=== PATIENT | female | born 1950 | race Caucasian/White ===

== ENCOUNTER → 2016-08-29 | Outpatient (CLI) | payer BC ==
[~2016-08-29] MED LIST: CALCTAB5 PO; CHOL100010 PO; MISCCAP80 PO; MULT-884 PO; OMEG12006 PO; VITATAB19 PO
--- NOTE | 2016-08-29 17:14 | MAMMOGRAPHY REPORT ---
BILATERAL DIGITAL SCREENING MAMMOGRAM WITH CAD: 08/29/2016 CLINICAL HISTORY: Routine screening. Patient has no complaints. TECHNIQUE: Current study was also evaluated with a Computer Aided Detection (CAD) system. Bilateral CC and MLO views were obtained. COMPARISON: Comparison is made to exams dated: 07/22/2014 mammogram, 05/07/2013 mammogram, 01/23/2012 mammogram, 03/02/2010 mammogram - [facility], 04/22/2008, and 03/13/2007. BREAST COMPOSITION: The tissue of both breasts is heterogeneously dense, which may obscure small mas ses. FINDINGS: No suspicious masses, calcifications, or areas of architectural distortion are noted in ei ther breast. There has been no significant interval change compared to prior exams. IMPRESSION: ACR BI-RADS CATEGORY 1: NEGATIVE There is no mammographic evidence of malignancy. A 1 year screening mammogram is recommended. The pa tient will receive written notification of the results. Approximately 10% of breast cancers are not detected with mammography. A negative mammographic report should not delay biopsy if a clinically suggestive mass is present. Muna Messer M.D. /:08/29/2016 15:17:48 Antenna Installer: Hillary VICENTER, M, [facility] letter sent: Normal 1/2 BI-RADS Code: ACR BI-RADS Category 1: Negative
== END | disposition home or self-care (01) ==
LOC: C.MAMM 13:42
PROVIDERS: ATTEND Internal Medicine
DX: Z12.31 Encounter for screening mammogram for malignant neoplasm of breast (principal)

== ENCOUNTER → 2017-02-06 | Outpatient (CLI) | payer BC ==
[~2017-02-06] MED LIST changes: +GADAVIST IV PRN
--- NOTE | 2017-02-06 15:53 | DIAGNOSTIC IMAGING REPORT ---
BRAIN COMBO FOR IAC CLINICAL HISTORY: Follow up acoustic neuroma status post gamma knife therapy. COMPARISON STUDY: MRI of the brain February 04, 2015. TECHNIQUE: Utilizing 1.5 Mary magnet and dedicated coil, multiplanar, multi echo imaging of the brain was performed pre and postcontrast administration with thin cut imaging through the internal auditory canals. Injection of 6 cc of Gadavist IV was uneventful. FINDINGS: No areas of restricted diffusion are noted. Ventricular system is normal. Basilar cisterns are patent. There are no extra-axial collections. Flow-voids for the major intracranial vessels are present. The homogeneously enhancing mass centered within the right internal auditory canal has mildly increased in size since MRI of February 04, 2015. This lesion now measures 1.2 x 0.8 x 0.7 cm. It previously measured 1 x 0.6 x 0.5 cm. No additional intracranial masses are present. The left internal auditory canal is normal. No areas of parenchymal signal abnormality are present. Calvarial signal is normal. IMPRESSION: Mild increase in size of the right acoustic neuroma since MRI of February 04, 2015. The lesion measures 1.2 x 0.8 x 0.7 cm (previously 1 x 0.6 x 0.5 cm). Electronically signed by: Gus Blair M.D. 02/06/2017 3:52 PM Dictated Date/Time: 02/06/2017 3:08 PM
== END | disposition home or self-care (01) ==
LOC: C.MRI 13:36
PROVIDERS: ATTEND Specialist
DX: D33.3 Benign neoplasm of cranial nerves (principal)

== ENCOUNTER → 2017-04-23 | Outpatient (CLI) | payer OTHER ==
[~2017-04-23] MED LIST changes: -GADAVIST IV PRN
[2017-04-23 16:11] LABS: BASO % 0.2 %; BASO ABS # 0.03 K/uL (0-0.2); EOS % 0.2 %; EOS ABS # 0.03 K/uL (0-0.5); HEMATOCRIT 37.9 % (37-47); IG# 0.05 K/uL (0.00-0.02); LYMPH % 11.5 %; MEAN CORPUSCULAR HEMOGLOBIN 30.9 pg (25-34); MONO % 6.8 %; MONO ABS # 0.94 K/uL (0.11-0.59); NEUT % 80.9 %; NEUT ABS # 11.24 K/uL (1.4-6.5); PLATELET COUNT 317 K/uL (130-400); RED CELL DISTRIBUTION WIDTH CV 13.8 % (11.5-14.5); RED CELL DISTRIBUTION WIDTH SD 45.4 fL (36.4-46.3); WHITE BLOOD COUNT 13.89 K/uL (4.8-10.8)
[2017-04-23 16:22] LABS: MEAN CORPUSCULAR HGB CONC 34.3 g/dl (32-36)
[2017-04-23 16:33] LABS: BLOOD UREA NITROGEN 7 mg/dl (7-18); CALCIUM 9.3 mg/dl (8.5-10.1); CARBON DIOXIDE 25 mmol/L (21-32); CREATININE 0.68 mg/dl (0.60-1.20); GLUCOSE 107 mg/dl (70-99); SODIUM 128 mmol/L (136-145)
== END | disposition home or self-care (01) ==
LOC: C.LAB 15:50
PROVIDERS: ATTEND Internal Medicine
DX: R10.32 Left lower quadrant pain (principal)

== ENCOUNTER → 2017-04-24 | Outpatient (CLI) | payer OTHER ==
[~2017-04-24] MED LIST changes: +OPTIRAY 320 IV PRN
--- NOTE | 2017-04-24 09:33 | DIAGNOSTIC IMAGING REPORT ---
CT ABD/PELVIS IV AND ORAL CONT CLINICAL HISTORY: LUQ PAIN,SPLEEN CYST COMPARISON STUDY: None. TECHNIQUE: Following the IV administration of 93 mL of Optiray-320, CT scan of the abdomen and pelvis was performed from the lung bases to the proximal femurs. Images are reviewed in the axial, sagittal, and coronal planes. IV contrast was administered without complication. A dose lowering technique was utilized adhering to the principles of ALARA. CT DOSE: 337.74 mGycm FINDINGS: Lower chest: There is mild basilar interstitial thickening. Liver: There are multiple hypodense hepatic lesions, the largest of which measures 14 mm. These are relatively low density and may represent cysts. Gallbladder: Unremarkable. Spleen: Normal in size and attenuation. Pancreas: Unremarkable. Adrenal glands: Unremarkable. Kidneys: There are bilateral subcentimeter renal hypodensities, likely representing cysts. Bowel: There are no transition zones to indicate bowel obstruction. There is sigmoid wall thickening with infiltration of the perisigmoid fat. The findings are consistent with acute diverticulitis. There is a tiny extraluminal gas collection versus visualization of gas within a diverticulum. A tiny contained microperforation, cannot be excluded. The appendix appears normal. Peritoneum: There is no evidence of pelvic ascites Vasculature: There is mild ectasia of the distal thoracic aorta. Adenopathy: None. Pelvic viscera: Uterine fibroids are suspected. There is a probable 8 mm left ovarian dermoid. Skeletal structures: No destructive osseous lesions are seen. IMPRESSION: 1. Acute sigmoid diverticulitis. A tiny contained microperforation cannot be excluded. There is no evidence for a drainable peridiverticular abscess. 2. No evidence of bowel obstruction 3. Probable 8 mm left ovarian dermoid Electronically signed by: Keegan Butcher M.D. 04/24/2017 9:31 AM Dictated Date/Time: 04/24/2017 9:19 AM
== END | disposition home or self-care (01) ==
LOC: C.CTS 04-23 16:09
PROVIDERS: ATTEND Internal Medicine
DX: K59.00 Constipation, unspecified (principal); R10.32 Left lower quadrant pain; R10.814 Left lower quadrant abdominal tenderness; D73.4 Cyst of spleen; K57.32 Diverticulitis of large intestine without perforation or abscess without bleeding

== ENCOUNTER → 2017-11-04 | Outpatient (CLI) | payer OTHER ==
[~2017-11-04] MED LIST changes: -OPTIRAY 320 IV PRN
[2017-11-04 14:02] LABS: BASO % 0.9 %; BASO ABS # 0.05 K/uL (0-0.2); EOS ABS # 0.06 K/uL (0-0.5); HEMATOCRIT 40.7 % (37-47); HEMOGLOBIN 13.3 g/dL (12.0-16.0); IG# 0.01 K/uL (0.00-0.02); LYMPH % 25.6 %; MEAN CELL VOLUME 91.1 fL (80-100); MEAN CORPUSCULAR HEMOGLOBIN 29.8 pg (25-34); MEAN CORPUSCULAR HGB CONC 32.7 g/dl (32-36); MEAN PLATELET VOLUME 9.7 fL (7.4-10.4); MONO % 5.5 %; MONO ABS # 0.32 K/uL (0.11-0.59); NEUT % 66.8 %; NEUT ABS # 3.92 K/uL (1.4-6.5); PLATELET COUNT 331 K/uL (130-400); RED CELL DISTRIBUTION WIDTH SD 46.5 fL (36.4-46.3); WHITE BLOOD COUNT 5.86 K/uL (4.8-10.8)
== END | disposition home or self-care (01) ==
LOC: C.LABBC 11:42
PROVIDERS: ATTEND Family Medicine Adult Medicine
DX: E87.1 Hypo-osmolality and hyponatremia (principal); R29.810 Facial weakness

== ENCOUNTER → 2017-11-07 | Outpatient (CLI) | payer OTHER ==
--- NOTE | 2017-11-07 10:25 | DIAGNOSTIC IMAGING REPORT ---
BILATERAL CAROTID DOPPLER STUDY HISTORY: R29.810 Facial droop [id number] COMPARISON: None. TECHNIQUE: Real-time, grayscale, and color Doppler sonography of the carotid arteries was performed. Imaging reviewed in the transverse and longitudinal planes. All measurements were calculated based on NASCET criteria. FINDINGS: Antegrade flow is seen in the bilateral vertebral arteries. The brachial pressures are hemodynamically similar. The peak systolic velocity within the right ICA is 82 cm/s. The right systolic ratio is 1.4. The peak systolic velocity within the left ICA is 75 cm/s. The left systolic ratio is 1.1. IMPRESSION: No hemodynamically significant stenosis seen within the carotid arteries. Electronically signed by: Luis Grande M.D. 11/07/2017 10:23 AM Dictated Date/Time: 11/07/2017 10:22 AM
== END | disposition home or self-care (01) ==
LOC: C.ULTR 09:38
PROVIDERS: ATTEND Family Medicine Adult Medicine
DX: R29.810 Facial weakness (principal)

== ENCOUNTER 2018-10-17 04:54 | Inpatient (IN) ==
--- NOTE | 2018-09-05 16:01 | PAT Medication Instructions ---
Medication Instructions Date of Service September 05, 2018 Home Medications Calcium 600-D3 Plus 1 tab PO DAILY ascorbic acid (vitamin C) 500 mg PO BID cholecalciferol (vitamin D3) 2,000 unit PO BID [Probiotic] 3,000 mmu cells PO QAM magnesium sulfate 100 mg PO BID [Multivitamin Women 50 Plus] 1 tab PO BID potassium 99 mg PO QAM vitamin B complex 1 tab PO QAM DO NOT take the morning of surgery Calcium 600-D3 Plus 1 tab PO DAILY ascorbic acid (vitamin C) 500 mg PO BID cholecalciferol (vitamin D3) 2,000 unit PO BID [Probiotic] 3,000 mmu cells PO QAM magnesium sulfate 100 mg PO BID [Multivitamin Women 50 Plus] 1 tab PO BID potassium 99 mg PO QAM vitamin B complex 1 tab PO QAM *OK TO TAKE ANY OF THESE THE NIGHT BEFORE SURGERY; OTHERWISE NOTHING TO EAT OR DRINK AFTER MIDNIGHT* Other Notes If you have any questions please call us at [phone] or [phone] or [phone] or [phone]
--- NOTE | 2018-09-08 14:25 | Anesthesiology Consultation ---
Date of Service September 08, 2018 Assessment & Plan (1) Encounter for pre-operative examination: Chart Review Chart Review: Acceptable Risk for Surgery and Patient seen in Pre Admission Testing Teaching & Discussion Instructed NPO after midnight before surgery, except medications with 15 cc of water. Medication instructions provided according to the PAT guidelines. History Surgery Operation Date: 10/17/18 12:30 Proposed Procedures p Right Anterior Total Hip Replacement - Jayce Lorenz DO Height/Weight Height: 5 ft 6 in Weight: 61 kg Allergies Allergy/AdvReac Type Severity Reaction Status Date / Time Sulfa (Sulfonamide Allergy Intermediate RASH Verified 09/02/18 12:26 Antibiotics) Medications Home Medications Medication Instructions Recorded Confirmed Last Taken Ca-D3-mag en-bszn-ufj-janiya-bor 1 tab PO DAILY 09/02/18 09/02/18 Unknown [Calcium 600-D3 Plus] ascorbic acid (vitamin C) [Vitamin 500 mg PO BID 09/02/18 09/02/18 Unknown C] cholecalciferol (vitamin D3) 2,000 unit PO BID 09/02/18 09/02/18 Unknown [Vitamin D3] lactobacillus combination no.4 3,000 mmu cells PO QAM 09/02/18 09/02/18 Unknown [Probiotic] magnesium sulfate 100 mg PO BID 09/02/18 09/02/18 Unknown ggxloscl-yrg-ftga-FA-lutein 1 tab PO BID 09/02/18 09/02/18 Unknown [Multivitamin Women 50 Plus] potassium 99 mg PO QAM 09/02/18 09/02/18 Unknown vitamin B complex 1 tab PO QAM 09/02/18 09/02/18 Unknown Past Medical History Medical History Acoustic neuroma HAS R SIDED HEARING DEFECIT - HAD GAMMA RAY THERAPY History of diverticulitis Osteoarthritis Osteoporosis Stutter Exercise / Class Metabolic Activity III < 4 Walking/Shop/Light housework (Very limited by hip pain currently, has noticed some deconditioning in the past year or so, +SOB with stairs, denies CP.) Past Family History Family History Other Coronary heart disease Hypertension Kidney disease Past Surgical History Surgical History Hx of colonoscopy with polypectomy Past Anesthesia History No Hx of Anesthesia Complications and No Family Hx of Anesthesia Complications GA NAIVE History of PONV No Hx of PONV (some mild nausea) and No Hx of Motion Sickness (but has dizziness from acoustic neuroma) Social History Smoking Status: Never smoker Do You Dip or Chew Tobacco: No Hx Alcohol Use: Yes Alcohol type: beer and wine alcohol intake frequency: a few times a week Hx Substance Use: No Review of Systems Pt denies any recent chest pain, shortness of breath, palpitations, cough, fever or URI. +mild cold last month, resolved. +occ palpitations Physical Exam Vital Signs BP: 129/76 P: 64bpm SPO2: 98% RA T: 98.7 F R: 16 ENMT Mouth: + dental restorations (few crowns); no chipped teeth and no loose teeth Thyromental Distance: < 3.5 Finger Breadths (1.5) Mallampati Class: III Neck + shortened thyromental distance; neck extension not limited Respiratory normal respiratory effort Auscultation: lungs clear to auscultation bilaterally Cardiovascular Rate/Rhythm: regular rate and regular rhythm Heart Sounds: no murmur Vessels: no carotid bruit Extremities: no edema Testing Laboratory Results 09/08/18 14:55 09/08/18 14:55 PT 10.3 Seconds (9.0-12.0) 09/08/18 14:55 INR 1.0 (0.9-1.1) 09/08/18 14:55 APTT 25.4 Seconds (21.0-31.0) 09/08/18 14:55 Blood Type B Positive 09/08/18 14:55 Antibody Screen NEGATIVE 09/08/18 14:55 Electrocardiogram Date: 12/02/17 Findings: + NSR @ (61 with sinus arrhythmia) Chest X-Ray Date: 09/08/18 Findings: + NAD
[2018-09-08 15:35] LABS: Basophils # (auto) 0.04 K/uL (0-0.2); Basophils % (auto) 0.7 %; Eosinophils # (auto) 0.08 K/uL (0-0.5); Eosinophils % (auto) 1.3 %; Hematocrit (blood only) 36.9 % (37-47); Hemoglobin 12.6 g/dL (12.0-16.0); Immature Granulocytes # (auto) 0.01 K/uL (0.00-0.02); Immature Granulocytes % (auto) 0.2 %; Lymphocytes # (auto) 1.51 K/uL (1.2-3.4); Lymphocytes % (auto) 24.6 %; Mean Corpuscular Hgb Conc 34.1 g/dL (32-36); Mean Corpuscular Volume 88.9 fL (80-100); Mean Platelet Volume 9.2 fL (7.4-10.4); Monocytes # (auto) 0.46 K/uL (0.11-0.59); Monocytes % (auto) 7.5 %; Neutrophils # (auto) 4.04 K/uL (1.4-6.5); Neutrophils % (auto) 65.7 %; Platelet Count 311 K/uL (130-400); RDW Standard Deviation 45.9 fL (36.4-46.3); Red Blood Count 4.15 M/uL (4.2-5.4); White Blood Count 6.14 K/uL (4.8-10.8)
--- NOTE | 2018-09-08 15:47 | XRay Report ---
XR chest Pre-admission PA/Lat CLINICAL HISTORY: Preoperative evaluation. COMPARISON STUDY: Chest radiograph February 20, 2011. FINDINGS: Lung volumes are normal. There is no pneumothorax or pleural effusion. There is no consolid ation or evidence for pulmonary edema. Cardiac size is normal. Mediastinal contours are normal. IMPRESSION: No acute cardiopulmonary findings. Electronically signed by: Gus Blair M.D. 09/08/2018 3:46 PM
[2018-09-08 15:52] LABS: BUN Creatinine Ratio 23.8 (10-20); Calcium 9.8 mg/dl (8.5-10.1); Creatinine Clr Calc Pharmacy 87.2 ml/min; Est GFR (African American) 109.6; Est GFR (Non-African American) 94.6; Potassium 4.6 mmol/L (3.5-5.1)
[2018-09-08 15:56] LABS: Partial Thromboplastin Ratio 0.9; Partial Thromboplastin Time 25.4 Seconds (21.0-31.0); Prothrombin Time 10.3 Seconds (9.0-12.0)
--- NOTE | 2018-10-14 07:26 | History & Physical Report ---
Date of Service October 14, 2018 Assessment & Plan (1) Osteoarthritis of right hip: We will proceed with a right anterior total hip arthroplasty. Postoperatively she will be started on aspirin for DVT prophylaxis. She will be kept overnight in the hospital for postoperative medical management. She plans to use energy physical therapy upon discharge. Present on Admission?: Yes History of Present Illness Chief Complaint: Primary osteoarthritis of the right hip Primary Care Provider: Wilton Bradshaw MD Staci is a pleasant 68-year-old female who is been dealing with chronic increasing right hip and groin pain. X-rays and clinical examination were diagnostic for primary osteoarthritis of the right hip. After failing conservative treatment, she has elected proceed with a right anterior total hip arthroplasty. Allergies Allergy/AdvReac Type Severity Reaction Status Date / Time Sulfa (Sulfonamide Allergy Intermediate RASH Verified 09/02/18 12:26 Antibiotics) Home Medications Home Medications Medication Instructions Recorded Confirmed Type Ca-D3-mag hs-elpv-rzp-janiya-bor 1 tab PO DAILY 09/02/18 09/02/18 History [Calcium 600-D3 Plus] ascorbic acid (vitamin C) [Vitamin 500 mg PO BID 09/02/18 09/02/18 History C] cholecalciferol (vitamin D3) 2,000 unit PO BID 09/02/18 09/02/18 History [Vitamin D3] lactobacillus combination no.4 3,000 mmu cells PO QAM 09/02/18 09/02/18 History [Probiotic] magnesium sulfate 100 mg PO BID 09/02/18 09/02/18 History wtwlgdjy-ldc-njdm-FA-lutein 1 tab PO BID 09/02/18 09/02/18 History [Multivitamin Women 50 Plus] potassium 99 mg PO QAM 09/02/18 09/02/18 History vitamin B complex 1 tab PO QAM 09/02/18 09/02/18 History Past Med/Surg History Medical History Acoustic neuroma HAS R SIDED HEARING DEFECIT - HAD GAMMA RAY THERAPY History of diverticulitis Osteoarthritis Osteoporosis Stutter Surgical History Hx of colonoscopy with polypectomy Family History Other Coronary heart disease Hypertension Kidney disease Social History (Reviewed 09/10/18 @ 16:26 by Aquilino Santana Preferred Language: [place] Communication Ability: Effective Beliefs That Will Affect Care: None Current Living Situation: Spouse Feels Safe at Home: Yes Smoking Status: Never smoker Second Hand Exposure: No Hx Alcohol Use: Yes Alcohol type: beer and wine Hx Substance Use: No Review of Systems All systems reviewed & are unremarkable except as noted in HPI & below Physical Exam Constitutional: WD/WN, vitals as above Eyes: PERRL, conjunctivae normal, anicteric sclerae ENMT: external ear and nose normal, oropharynx normal Neck: trachea midline, no thyromegaly Respiratory: normal respiratory effort Cardiovascular: RRR, no murmur, no edema Gastrointestinal (Abdomen): normal bowel sounds, soft, nontender, no hepatosplenomegaly Musculoskeletal: Physical examination of the right hip reveals decreased range of motion with flexion, internal and external rotation. There is significant groin pain with forced internal rotation of the hip his leg lengths are essentially equal. Psychiatric: A+Ox3, euthymic affect Results & Data Diagnostic Findings Radiographs of the right hip and pelvis demonstrate advanced osteoarthritis with joint space narrowing osteophyte formation and mxje-ff-akzl articulation.
[2018-10-17] MEDS ORDERED: LR 500ML BOLUS, THEN 15ML/HR IV SCH (06:00)
[2018-10-17] MEDS ORDERED: TRANEXAMIC ACID 1,000 MG **IV Pre-op IV SCH (06:00)
[2018-10-17] MEDS ORDERED: ROPIVACAINE 0.5% HCL/PF 150 MG, BUPIVACAINE 0.5% MPF 30 ML, EPINEPHrine 30MG/30ML (OR U... INSTIL SCH (06:00)
[2018-10-17] MEDS ORDERED: LR 60ML/HR IV SCH (06:00)
[2018-10-17] MEDS ORDERED: GABAPENTIN 300 MG CAP PO SCH (06:00)
[2018-10-17] MEDS ORDERED: ACETAMINOPHEN 500 MG TAB PO SCH (06:00)
[2018-10-17] MEDS ORDERED: CEFAZOLIN 1000MG 1,000 MG/7.5 ML SYR IV SCH (06:00)
[2018-10-17] MEDS ORDERED: FAMOTIDINE 20 MG TAB PO SCH (06:00)
[2018-10-17] MEDS ORDERED: BUPIVACAINE 0.5 % 5 MG/1 ML PF 10ML VIAL ONE (06:24)
[2018-10-17] MEDS ORDERED: ePHEDrine sulfate 50 MG/ML AMP IV PRN (06:34)
[2018-10-17] MEDS ORDERED: ATROPINE SULFATE 0.1 MG/ML 10ML SYR IV PRN (06:34)
[2018-10-17] MEDS ORDERED: ONDANSETRON INJ 2 MG/ML 2 ML VIAL IV PRN ×2 (06:34→10:22)
[2018-10-17] MEDS ORDERED: fentaNYL citrate 100 MCG/2 ML VIAL IV PRN (06:34)
[2018-10-17] MEDS ORDERED: ORTHO JOINT ANESTHETIC ONE (06:36)
[2018-10-17] MEDS ORDERED: MIDAZOLAM HCL 1 MG/ML 2ML VIAL ONE ×2 (06:41→07:02)
[2018-10-17] MEDS ORDERED: fentaNYL citrate 100 MCG/2 ML VIAL ONE (06:42)
[2018-10-17] MEDS ORDERED: PROPOFOL IV EMULSION 10 MG/ML 20 ML VIAL IV ONE ×2 (06:44→08:15)
[2018-10-17] MEDS ORDERED: LIDOCAINE HCL 2% 2 ML VIAL/AMP(20MG/ML) INFIL ONE (06:44)
--- NOTE | 2018-10-17 06:55 | History & Physical Bridge Note ---
Date of Service October 17, 2018 History & Physical Bridge Note I have examined the patient, reviewed the History & Physical and in the interval since the performance of the History & Physical I have noted the following changes of clinical significance: no changes noted
[2018-10-17] MEDS ORDERED: ONDANSETRON INJ 2 MG/ML 2 ML VIAL ONE (07:21)
[2018-10-17] MEDS ORDERED: PHENYLEPHRINE 100MCG/ML 5ML SYR ONE (08:12)
--- NOTE | 2018-10-17 08:34 | Operative Report ---
Post Operative Report Pre & Post Diagnosis Operation Date: 10/17/18 07:00 Pre-Op Diagnosis: Right Hip Advanced Osteoarthritis Post-Op Diagnosis: Right Hip Advanced Osteoarthritis Procedure Operation Date: 10/17/18 07:00 Actual Procedures p Right Anterior Total Hip Arthroplasty--Uncemented(Right) - Jayce Lorenz DO Surgeon Jayce Lorenz DO Freight Car Loader Jayce Viveros PAC Estimated Blood Loss 200 Findings Consistent with Post-Op Diagnosis Specimens Right femoral head Complications none Disposition Disposition: Recovery Room Indications Female who presented my office with complaints of chronic increasing right hip and groin pain. X-rays and clinical examination were diagnostic for primary osteoarthritis of the right hip. After failing conservative treatment, she elected to proceed with a right anterior total hip arthroplasty. Description of Procedure Implants used Biomet Taperloc total hip arthroplasty system with a size 12 standard offset Taperloc stem, a 54 mm G7 cup with a 25mm screw, an E1 polyethylene liner, a 40 mm ceramic head with a 0 neck. Patient arrived at the hospital for the above procedure. They were seen in the preoperative holding area and the operative extremity was identified and signed. They were given a spinal anesthetic. They were given a preoperative antibiotic and TXA. They were taken back To the operating room and laid on the table in the supine position. The leg was brought out through a Puristst leg positioner. The hip was then prepped and draped in sterile fashion. A timeout was done and the patient in upper extremities properly identified. An anterior approach was used. Dissection was taken down through the fascia and the tensor muscle belly was retracted laterally and the rectus was retracted medially. The circumflex vessels were identified and ligated. The capsule was then incised and tagged for later repair. The femoral neck was then cut and the femoral head was removed. The acetabulum was exposed. Time was spent doing a complete circumferential labral release. Sequential reaming of the acetabulum up to a size 53 reamer was done. Final reamings were done under fluoroscopy to ensure appropriate version. A Biomet 54 mm G7 cup was then impacted into place. A single 25 mm screw was placed. The E1 polyethylene liner was then snapped into place. Surrounding soft tissues were then injected with 100 cc of an orthopedic pain control cocktail. The proximal femur was then exposed. Sequential broaching up to a size 12 broach was done. Off that broach a size 40 head with a 0 neck was trialed. The hip was reduced and fluoroscopic images showed anatomic alignment of the implants in acceptable length. The broach was removed. The final size 12 standard offset Taperloc stem was then impacted into place. A ceramic 40 mm head with a 0 neck was then impacted into place in the hip was reduced. Final fluoroscopic images showed anatomic reduction of the hip. The capsule was then closed with #1 Vicryl suture. A dilute betadyne lavage was then done for 3 minutes. The joint was then irrigated with normal saline solution. The fascia was closed with #1 PDS suture. Skin was closed with 2-0 Vicryl, pinky, and a Kayce VAC dressing. The patient was then transferred to a hospital bed and taken to the post anesthesia care unit in stable condition. They tolerated the procedure well. I attest to the content of the Intraoperative Record and any orders documented therein. Any exceptions are noted below.
--- NOTE | 2018-10-17 08:52 | Fluoroscopy Report ---
FL hip RT 1V CLINICAL HISTORY: RIGHT ANTERIOR SAVANNA COMPARISON STUDY: 05/27/2015 FLUOROSCOPY TIME: 22 seconds. NUMBER OF FLUOROSCOPIC IMAGES: 2 FINDINGS: 2 intraoperative fluoroscopic spot images reveal 80 ( /20.)!. IMPRESSION: Intraoperative fluoroscopic spot images demonstrating a total right hip arthroplasty. No dislocation. Electronically signed by: Keegan Butcher M.D. 10/17/2018 8:51 AM
--- NOTE | 2018-10-17 09:14 | Anesthesiology Progress Note ---
Date of Service October 17, 2018 Anesthesia Post Procedure Vital Signs Vital Signs: Temp Pulse Resp BP Pulse Ox 10/17/18 09:10 73 21 119/69 100 10/17/18 09:00 73 20 116/64 100 10/17/18 08:50 97.3 F L 75 16 103/65 100 10/17/18 05:42 97.9 F 69 16 153/73 H 98 Transfer of Care Handoff Completed per policy Notes Mental Status: alert / awake / arousable and participated in evaluation Patient Amnestic to Procedure: Yes Nausea / Vomiting: adequately controlled Pain: adequately controlled Airway Patency, RR, SpO2: stable & adequate BP & HR: stable & adequate Hydration State: stable & adequate Neuraxial Anesthesia: was administered and sensory block is resolving Anesthetic Complications: no major complications apparent and Pt Satisfied with anesthetic care
[2018-10-17] MEDS: TRANEXAMIC ACID 1,000 MG **IV Intra-op IV SCH ×2 (09:21→10:27)
--- NOTE | 2018-10-17 09:22 | XRay Report ---
AP PELVIS, CROSSTABLE LATERAL RIGHT HIP History: Right total hip arthroplasty. Degenerative arthritis. Postop. FINDINGS: The patient is status post a right total hip arthroplasty. The hardware is intact. No fract ure or dislocation. Skin pinky and surgical drains are in place. IMPRESSION: Right total hip arthroplasty. No evidence for hardware complication Electronically signed by: Luis Grande M.D. 10/17/2018 9:20 AM
[2018-10-17] MEDS ORDERED: OXYCODONE HCL IR 5 MG TAB (IMMEDIATE RELEASE) PO PRN (10:22)
[2018-10-17] MEDS ORDERED: MULTIVITAMIN TAB PO SCH (10:22)
[2018-10-17] MEDS ORDERED: METOCLOPRAMIDE HCL INJ 5 MG/ML 2 ML VIAL IV PRN (10:22)
[2018-10-17] MEDS ORDERED: HYDROmorphone INJ 0.5 MG/0.5 ML SYR IV PRN (10:22)
[2018-10-17] MEDS ORDERED: BISACODYL 10 MG SUPP PR PRN (10:22)
[2018-10-17] MEDS ORDERED: MAGNESIUM HYDROXIDE SUSP 30 ML UDC PO PRN (10:22)
[2018-10-17] MEDS ORDERED: NALOXONE HCL 0.4 MG/1 ML VIAL/CARP IV PRN (10:22)
[2018-10-17] MEDS ORDERED: MAGNESIUM SULFATE 100 MG PO SCH (10:22)
[2018-10-17] MEDS: SODIUM CHLORIDE 0.9% 1000ML 1,000 ML IV SCH ×2 (11:12→21:22)
[2018-10-17] MEDS: DOCUSATE SODIUM 100 MG CAP PO SCH ×2 (12:39→21:24)
[2018-10-17] MEDS: CHOLECALCIFEROL 1,000 UNITS TAB PO SCH ×2 (12:40→21:24)
[2018-10-17] MEDS: KETOROLAC TROMETHAMINE 15 MG/ML VIAL IV SCH ×3 (12:40→22:21)
[2018-10-17] MEDS: CEROVITE ADV FORMULA TAB PO SCH (12:40)
[2018-10-17] MEDS: POTASSIUM CHLORIDE 10 MEQ TABCR PO SCH (12:40)
[2018-10-17] MEDS: ASPIRIN 81 MG ECTAB PO SCH ×2 (12:40→21:24)
[2018-10-17] MEDS: LACTOBACILLUS ACIDOPHILUS (FLORANEX) TAB PO SCH (12:40)
[2018-10-17] MEDS: CALCIUM 600MG + VIT D 400 IU TAB PO SCH (12:40)
[2018-10-17] MEDS: ACETAMINOPHEN 500 MG TAB PO SCH ×2 (14:10→22:21)
[2018-10-17] MEDS: CEFAZOLIN 2000MG 2,000 MG/15 ML SYR IV SCH ×2 (14:11→22:21)
[2018-10-17] MEDS ORDERED: SENNA 8.6 MG TAB PO SCH (21:00)
[2018-10-18] MEDS: ACETAMINOPHEN 500 MG TAB PO SCH ×2 (04:59→13:21)
[2018-10-18] MEDS: KETOROLAC TROMETHAMINE 15 MG/ML VIAL IV SCH ×3 (04:59→16:12)
[2018-10-18 06:07] LABS: Basophils # (auto) 0.02 K/uL (0-0.2); Basophils % (auto) 0.2 %; Eosinophils # (auto) 0.02 K/uL (0-0.5); Eosinophils % (auto) 0.2 %; Hematocrit (blood only) 32.8 % (37-47); Hemoglobin 10.9 g/dL (12.0-16.0); Immature Granulocytes # (auto) 0.03 K/uL (0.00-0.02); Immature Granulocytes % (auto) 0.3 %; Lymphocytes # (auto) 1.15 K/uL (1.2-3.4); Lymphocytes % (auto) 11.2 %; Mean Corpuscular Hgb Conc 33.2 g/dL (32-36); Mean Corpuscular Volume 89.9 fL (80-100); Mean Platelet Volume 9.4 fL (7.4-10.4); Monocytes # (auto) 1.02 K/uL (0.11-0.59); Neutrophils # (auto) 8.01 K/uL (1.4-6.5); Neutrophils % (auto) 78.1 %; Platelet Count 243 K/uL (130-400); RDW Coefficient of Variation 14.4 % (11.5-14.5); RDW Standard Deviation 47.5 fL (36.4-46.3); Red Blood Count 3.65 M/uL (4.2-5.4); White Blood Count 10.25 K/uL (4.8-10.8)
[2018-10-18 06:38] LABS: BUN Creatinine Ratio 15.4 (10-20); Creatinine Clr Calc Pharmacy 84.2 ml/min; Est GFR (African American) 108.4; Est GFR (Non-African American) 93.5; Potassium 4.6 mmol/L (3.5-5.1)
[2018-10-18] MEDS: ASPIRIN 81 MG ECTAB PO SCH (08:50)
[2018-10-18] MEDS: DOCUSATE SODIUM 100 MG CAP PO SCH (08:50)
[2018-10-18] MEDS: CALCIUM 600MG + VIT D 400 IU TAB PO SCH (08:50)
[2018-10-18] MEDS: POTASSIUM CHLORIDE 10 MEQ TABCR PO SCH (08:51)
[2018-10-18] MEDS: LACTOBACILLUS ACIDOPHILUS (FLORANEX) TAB PO SCH (08:51)
[2018-10-18] MEDS: CHOLECALCIFEROL 1,000 UNITS TAB PO SCH (08:52)
--- NOTE | 2018-10-18 09:00 | Orthopedic Progress Note ---
Date of Service October 18, 2018 Assessment & Plan (1) Osteoarthritis of right hip: Overall she is doing fairly well. She is not having too much pain in the hip. She will be seen by physical therapy this morning for ambulation and range of motion exercises. She is on aspirin for DVT prophylaxis and oxycodone for pain control. She can be discharged home later this afternoon if she is feeling okay. If she still having some soreness or difficulty ambulating, she can stay until tomorrow. Present on Admission?: Yes Subjective Staci was seen and examined at bedside this morning. Overall she is doing fairly well. She is not having too much pain in her hip. She is been up and ambulating. She has no complaints. Physical Exam Musculoskeletal: On physical examination of the right hip, the Kayce VAC dressing is to suction. Her leg lengths are equal. She has active range of motion of her right ankle. Sensations intact throughout. Results & Data Vital Signs (Past 12 Hours) Vital Signs Temp Pulse Resp BP BP Pulse Ox 10/18/18 07:03 36.8 C 72 18 121/80 98 10/18/18 03:42 36.6 C 78 16 135/73 98 10/17/18 23:10 36.6 C 72 16 111/74 95 10/17/18 22:32 36.9 C 67 18 105/68 96 Laboratory Results H & H 09/08/18 10/18/18 Range/Units 14:55 05:44 Hgb 12.6 10.9 L (12.0-16.0) g/dL Hct 36.9 L 32.8 L (37-47) % Coagulation 09/08/18 Range/Units 14:55 INR 1.0 (0.9-1.1) Diagnostic Findings Postoperative x-rays of the right hip show the prosthesis to be in anatomic alignment without any evidence of fracture, dislocation, or loosening.
[2018-10-18] MEDS: CEROVITE ADV FORMULA TAB PO SCH (10:03)
--- NOTE | 2018-10-19 07:32 | Discharge Summary ---
Date of Service October 19, 2018 Admission HPI Per Admitting Provider Staci is a pleasant 68-year-old female who is been dealing with chronic increasing right hip and groin pain. X-rays and clinical examination were diagnostic for primary osteoarthritis of the right hip. After failing con servative treatment, she has elected proceed with a right anterior total hip arthroplasty. Specialty Data Orthopedic H & H 09/08/18 10/18/18 Range/Units 14:55 05:44 Hgb 12.6 10.9 L (12.0-16.0) g/dL Hct 36.9 L 32.8 L (37-47) % Coagulation 09/08/18 Range/Units 14:55 INR 1.0 (0.9-1.1) Discharge Data Consultations 10/18/18 08:00 Consult Case Management - Discharge Planning Routine Procedures Performed Operation Date: 10/17/18 07:00 Actual Procedures p Right Anterior Total Hip Arthroplasty--Uncemented(Right) - Jayce Lorenz DO Hospital Course (1) Osteoarthritis of right hip: On October 17, 2018 Staci arrived at [facility] and underwent a right anterior total hip arthroplasty without complication. She had a spinal anesthetic. Postoperatively she was started on aspirin for DVT prophylaxis and discharged to general orthopedic floors. Her hospital course is uneventful. On postop day #1 her H&H was stable and her pain was well controlled. She was able to ambulate well with physical therapy. She was then discharged home with energy physical therapy. She will follow-up with orthopedics in 2 weeks. Discharge Instructions Home Medications Medication Instructions Recorded Confirmed Ca-D3-mag lh-utsi-ocu-janiya-bor 1 tab PO DAILY 09/02/18 09/02/18 [Calcium 600-D3 Plus] Multivitamin Women 50 Plus 1 tab PO BID 09/02/18 09/02/18 Probiotic 3,000 mmu cells PO QAM 09/02/18 09/02/18 ascorbic acid (vitamin C) [Vitamin 500 mg PO BID 09/02/18 09/02/18 C] cholecalciferol (vitamin D3) 2,000 unit PO BID 09/02/18 09/02/18 [Vitamin D3] magnesium sulfate 100 mg PO BID 09/02/18 09/02/18 potassium 99 mg PO QAM 09/02/18 09/02/18 vitamin B complex 1 tab PO QAM 09/02/18 09/02/18 Saccharomyces boulardii 250 mg PO .TAKE 1 CAPSULE Daily cap 10/16/18 10/16/18 capsule multivitamin PO 10/16/18 10/16/18 omega 5-jbm-knn-fish oil 900 cap PO cap 10/16/18 10/16/18 mg-1,400 mg capsule,delayed release turmeric root extract 500 mg 500 mg PO DAILY 10/16/18 10/16/18 capsule Previous Rx's Medication Instructions Recorded aspirin [Ecotrin Low Strength] 81 mg PO BID #84 tab 10/18/18 oxycodone 5 mg PO Q4H PRN #40 tab 10/18/18
== END 2018-10-18 17:22 | disposition home or self-care (01) | DRG 470 ==
LOC: ASU 04:54 → 3E 08:51

== ENCOUNTER 2019-03-20 04:50 | Inpatient (IN) ==
--- NOTE | 2019-02-24 14:56 | PAT Medication Instructions ---
Medication Instructions Date of Service February 24, 2019 Home Medications Ca-D3-mag cm-jrnm-cha-janiya-bor [Calcium 600-D3 Plus (mag-zinc)] 1 tab PO DAILY Multivitamin Women 50 Plus 1 tab PO BID Probiotic 3,000 mmu cells PO QAM ascorbic acid (vitamin C) [Vitamin C] 500 mg PO BID cholecalciferol (vitamin D3) [Vitamin D3] 2,000 unit PO BID magnesium sulfate 100 mg PO BID potassium 99 mg PO QAM vitamin B complex 1 tab PO QAM Saccharomyces boulardii 250 mg capsule 250 mg PO QAM omega 9-lca-exi-fish oil 900 mg-1,400 mg capsule,delayed release 1 cap PO QAM turmeric root extract 500 mg capsule 500 mg PO DAILY alendronate [Fosamax] 70 mg PO WK amoxicillin 2,000 mg PO UD PRN Continue as directed alendronate [Fosamax] 70 mg PO WK amoxicillin 2,000 mg PO UD PRN (prior to dental procedures) STOP taking 2 weeks before surgery (or as soon as possible if surgery is within 2 weeks) omega 8-ash-zay-fish oil 900 mg-1,400 mg capsule,delayed release 1 cap PO QAM turmeric root extract 500 mg capsule 500 mg PO DAILY DO NOT take the morning of surgery Ca-D3-mag jy-vdzo-bdz-janiya-bor [Calcium 600-D3 Plus (mag-zinc)] 1 tab PO DAILY Multivitamin Women 50 Plus 1 tab PO BID Probiotic 3,000 mmu cells PO QAM ascorbic acid (vitamin C) [Vitamin C] 500 mg PO BID cholecalciferol (vitamin D3) [Vitamin D3] 2,000 unit PO BID magnesium sulfate 100 mg PO BID potassium 99 mg PO QAM vitamin B complex 1 tab PO QAM Saccharomyces boulardii 250 mg capsule 250 mg PO QAM Other Notes If you have any questions please call us at [phone] or [phone] or [phone] or [phone]
--- NOTE | 2019-02-25 10:32 | Anesthesiology Consultation ---
Date of Service February 25, 2019 Assessment & Plan (1) Encounter for pre-operative examination: - Patient goes by "Staci Cotton" Chart Review Chart Review: Acceptable Risk for Surgery and Patient seen in Pre Admission Testing Teaching & Discussion Pre-Anesthesia Teaching/Discussion Notes: Instructed NPO after midnight before surgery,except medications with 15 cc of water. Medication instructions provided according to the PAT guidelines. History Surgery Operation Date: 03/20/19 08:30 Proposed Procedures p Left Anterior Total Hip Arthroplasty - Jayce Lorenz DO Height/Weight Height: 5 ft 6 in Weight: 61.3 kg Allergies Allergy/AdvReac Type Severity Reaction Status Date / Time Sulfa (Sulfonamide Allergy Intermediate RASH Verified 02/25/19 09:39 Antibiotics) Bactrim TABS Allergy Uncoded 02/25/19 09:39 Medications Home Medications Medication Instructions Recorded Confirmed Last Taken Ca-D3-mag vz-scxx-xom-janiya-bor 1 tab PO DAILY 09/02/18 02/17/19 10/10/18 08:00 [Calcium 600-D3 Plus (mag-zinc)] Multivitamin Women 50 Plus 1 tab PO BID 09/02/18 02/17/19 10/10/18 08:00 Probiotic 3,000 mmu cells PO QAM 09/02/18 02/17/19 10/10/18 08:00 ascorbic acid (vitamin C) [Vitamin 500 mg PO BID 09/02/18 02/17/19 10/10/18 08:00 C] cholecalciferol (vitamin D3) 2,000 unit PO BID 09/02/18 02/17/19 10/10/18 08:00 [Vitamin D3] magnesium sulfate 100 mg PO BID 09/02/18 02/17/19 10/10/18 08:00 potassium 99 mg PO QAM 09/02/18 02/17/19 10/10/18 08:00 vitamin B complex 1 tab PO QAM 09/02/18 02/17/19 10/10/18 08:00 Saccharomyces boulardii 250 mg 250 mg PO QAM cap 10/16/18 02/17/19 10/10/18 08:00 capsule omega 4-qek-mnn-fish oil 900 1 cap PO QAM cap 10/16/18 02/17/19 10/10/18 08:00 mg-1,400 mg capsule,delayed release turmeric root extract 500 mg 500 mg PO DAILY 10/16/18 02/17/19 10/10/18 08:00 capsule alendronate [Fosamax] 70 mg PO WK 02/17/19 02/17/19 Unknown Past Medical History Medical History (Updated 02/25/19 @ 15:30 by Bethany Cardoso) 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) History of diverticulitis Hyponatremia chronic with baseline in low 130's per chart review dating back to at least 03/2017 Osteoarthritis Osteoporosis Stutter Exercise / Class Metabolic Activity II 4-5 Yardwork/Stairs/Walk up hill (one flight of stairs (no chest pain/no sob)) Past Family History Family History Grandfather Stomach cancer Other Coronary heart disease Hypertension Kidney disease Past Surgical History Surgical History History of right hip replacement Right anterior SAVANNA: 10/17/18 : SAB x 1 at L3-L4 at [facility] History of wisdom tooth extraction Hx of colonoscopy with polypectomy Past Anesthesia History No Hx of Anesthesia Complications and No Family Hx of Anesthesia Complications History of PONV No Hx of PONV and Hx of Motion Sickness (+ occasional related to acoustic neuroma) Social History Smoking Status: Never smoker Do You Dip or Chew Tobacco: No Hx Alcohol Use: Yes Alcohol type: beer and wine alcohol intake frequency: a few times a week Hx Substance Use: No substance use type: does not use Review of Systems Patient denies chest pain, shortness of breath, dyspnea on exertion, cough, wheezing, palpitations. Physical Exam Vital Signs VITALS BP 134/82 P 68 TEMP 97.9 SP02 97%RA RESP 16 PHYSICAL Full neck and c-spine range of motion. Full TMJ range of motion. TMD 2 finger breaths Mallampati Score 2 Dentition: intact, several caps "all over" Lungs: clear throughout to auscultation Cardiac: regular rate and rhythm, no murmurs noted Spine: normal Carotid arteries: negative bruit Extremities: no edema Testing Laboratory Results 02/25/19 10:57 02/25/19 10:57 PT 10.2 Seconds (9.0-12.0) 02/25/19 10:57 INR 1.0 (0.9-1.1) 02/25/19 10:57 APTT 25.3 Seconds (21.0-31.0) 02/25/19 10:57 Blood Type B Positive 02/25/19 10:57 Antibody Screen NEGATIVE 02/25/19 10:57 *chronic hyponatremia with baseline in low 130's per chart review dating back to at least 03/2017* Electrocardiogram Date: 02/25/19 Findings: + NSR @ (71) Chest X-Ray Date: 09/08/18 Findings: + NAD
[2019-02-25 13:15] LABS: Basophils # (auto) 0.03 K/uL (0-0.2); Basophils % (auto) 0.6 %; Eosinophils # (auto) 0.06 K/uL (0-0.5); Eosinophils % (auto) 1.1 %; Hemoglobin 13.6 g/dL (12.0-16.0); Immature Granulocytes # (auto) 0.02 K/uL (0.00-0.02); Immature Granulocytes % (auto) 0.4 %; Lymphocytes # (auto) 1.42 K/uL (1.2-3.4); Lymphocytes % (auto) 26.1 %; Mean Corpuscular Hemoglobin 29.3 pg (25-34); Mean Corpuscular Hgb Conc 33.2 g/dL (32-36); Mean Corpuscular Volume 88.4 fL (80-100); Mean Platelet Volume 9.6 fL (7.4-10.4); Monocytes # (auto) 0.36 K/uL (0.11-0.59); Monocytes % (auto) 6.6 %; Neutrophils # (auto) 3.55 K/uL (1.4-6.5); Neutrophils % (auto) 65.2 %; Platelet Count 355 K/uL (130-400); RDW Coefficient of Variation 15.3 % (11.5-14.5); RDW Standard Deviation 48.9 fL (36.4-46.3); Red Blood Count 4.64 M/uL (4.2-5.4); White Blood Count 5.44 K/uL (4.8-10.8)
[2019-02-25 13:25] LABS: BUN Creatinine Ratio 24.4 (10-20); Calcium 9.8 mg/dl (8.5-10.1); Creatinine Clr Calc Pharmacy 85.7 ml/min; Potassium 4.6 mmol/L (3.5-5.1)
[2019-02-25 13:33] LABS: Partial Thromboplastin Ratio 0.9; Partial Thromboplastin Time 25.3 Seconds (21.0-31.0); Prothrombin Time 10.2 Seconds (9.0-12.0)
--- NOTE | 2019-03-19 06:44 | History & Physical Report ---
Date of Service March 19, 2019 Assessment & Plan (1) Osteoarthritis of left hip: We will proceed with a left anterior total hip arthroplasty. Postoperatively she will be started on aspirin for DVT prophylaxis and kept overnight in the hospital for postoperative medical management. She plans to use energy physical therapy upon discharge. Present on Admission?: Yes History of Present Illness Chief Complaint: Primary osteoarthritis of the left hip Primary Care Provider: Wilton Bradshaw MD Staci is a pleasant 68-year-old female who underwent a right anterior total hip arthroplasty in September 2018. She did very well with that. Unfortunately she has been dealing with a lot of left hip and groin pain. X-rays and clinical examination have been diagnostic for primary osteoarthritis of the left hip. After failing conservative treatment, she has elected to proceed with a left anterior total hip arthroplasty. Allergies Allergy/AdvReac Type Severity Reaction Status Date / Time Sulfa (Sulfonamide Allergy Intermediate RASH Verified 03/03/19 13:25 Antibiotics) Bactrim TABS Allergy Uncoded 03/03/19 13:25 Home Medications Home Medications Medication Instructions Recorded Confirmed Type Ca-D3-mag sy-cpgz-ezu-janiya-bor 1 tab PO DAILY 09/02/18 03/03/19 History [Calcium 600-D3 Plus (mag-zinc)] Multivitamin Women 50 Plus 1 tab PO BID 09/02/18 03/03/19 History Probiotic 3,000 mmu cells PO QAM 09/02/18 03/03/19 History ascorbic acid (vitamin C) [Vitamin 500 mg PO BID 09/02/18 03/03/19 History C] cholecalciferol (vitamin D3) 2,000 unit PO BID 09/02/18 03/03/19 History [Vitamin D3] magnesium sulfate 100 mg PO BID 09/02/18 03/03/19 History potassium 99 mg PO QAM 09/02/18 03/03/19 History vitamin B complex 1 tab PO QAM 09/02/18 03/03/19 History omega 6-dcu-qdn-fish oil 900 1 cap PO QAM cap 10/16/18 02/17/19 History mg-1,400 mg capsule,delayed release turmeric root extract 500 mg 500 mg PO DAILY 10/16/18 02/17/19 History capsule alendronate [Fosamax] 70 mg PO WK 02/17/19 03/03/19 History Past Med/Surg History Medical History 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) History of diverticulitis Hyponatremia chronic with baseline in low 130's per chart review dating back to at least 03/2017 Osteoarthritis Osteoporosis Stutter Surgical History History of right hip replacement Right anterior SAVANNA: 10/17/18 : SAB x 1 at L3-L4 at [facility] History of wisdom tooth extraction Hx of colonoscopy with polypectomy Family History Grandfather Stomach cancer Other Coronary heart disease Hypertension Kidney disease Social History Preferred Language: Burundian Communication Ability: Effective Beliefs That Will Affect Care: None marital status: Current Living Situation: Spouse Feels Safe at Home: Yes Smoking Status: Never smoker Second Hand Exposure: Yes ( A CHILD) ; Hx Alcohol Use: Yes Alcohol type: beer and wine Hx Substance Use: No Review of Systems All systems reviewed & are unremarkable except as noted in HPI & below Physical Exam Constitutional: WD/WN, vitals as above Eyes: PERRL, conjunctivae normal, anicteric sclerae ENMT: external ear and nose normal, oropharynx normal Neck: trachea midline, no thyromegaly Respiratory: normal respiratory effort Cardiovascular: RRR, no murmur, no edema Gastrointestinal (Abdomen): normal bowel sounds, soft, nontender, no hepatosplenomegaly Musculoskeletal: Physical examination of the left hip reveals decreased range of motion with flexion, internal and external rotation. There is significant groin pain with forced internal rotation of the hip his leg lengths are essentially equal. Psychiatric: A+Ox3, euthymic affect Results & Data Diagnostic Findings Radiographs of the left hip and pelvis demonstrate advanced osteoarthritis with joint space narrowing osteophyte formation and [id number] articulation.
[2019-03-20] MEDS ORDERED: FAMOTIDINE 20 MG TAB PO SCH (06:00)
[2019-03-20] MEDS ORDERED: LR 60ML/HR IV SCH (06:00)
[2019-03-20] MEDS ORDERED: CEFAZOLIN 1000MG 1,000 MG/7.5 ML SYR IV SCH (06:00)
[2019-03-20] MEDS ORDERED: TRANEXAMIC ACID 1,000 MG **IV Intra-op IV SCH (06:00)
[2019-03-20] MEDS ORDERED: ACETAMINOPHEN 500 MG TAB PO SCH (06:00)
[2019-03-20] MEDS ORDERED: LR 500ML BOLUS, THEN 15ML/HR IV SCH (06:00)
[2019-03-20] MEDS ORDERED: GABAPENTIN 300 MG CAP PO SCH (06:00)
[2019-03-20] MEDS ORDERED: ROPIVACAINE 0.5% HCL/PF 150 MG, BUPIVACAINE 0.5% MPF 30 ML, EPINEPHrine 30MG/30ML (OR U... INFIL SCH (06:00)
[2019-03-20] MEDS ORDERED: TRANEXAMIC ACID 1,000 MG **IV Pre-op IV SCH (06:00)
[2019-03-20] MEDS ORDERED: BUPIVACAINE 0.5 % 5 MG/1 ML PF 10ML VIAL ONE (06:23)
[2019-03-20] MEDS ORDERED: MIDAZOLAM HCL 1 MG/ML 2ML VIAL ONE ×3 (06:26→07:17)
[2019-03-20] MEDS ORDERED: PROPOFOL IV EMULSION 10 MG/ML 20 ML VIAL IV ONE (06:26)
[2019-03-20] MEDS ORDERED: fentaNYL citrate 100 MCG/2 ML VIAL ONE (06:26)
--- NOTE | 2019-03-20 06:40 | History & Physical Bridge Note ---
Date of Service March 20, 2019 History & Physical Bridge Note I have examined the patient, reviewed the History & Physical and in the interval since the performance of the History & Physical I have noted the following changes of clinical significance: no changes noted
[2019-03-20] MEDS ORDERED: PHENYLEPHRINE 100MCG/ML 5ML SYR IV PRN (07:05)
[2019-03-20] MEDS ORDERED: MEPERIDINE HCL 25 MG/ML CARP IV PRN (07:05)
[2019-03-20] MEDS ORDERED: ATROPINE SULFATE 0.1 MG/ML 10ML SYR IV PRN (07:05)
[2019-03-20] MEDS ORDERED: ePHEDrine sulfate 50 MG/ML AMP IV PRN (07:05)
[2019-03-20] MEDS ORDERED: fentaNYL citrate 100 MCG/2 ML VIAL IV PRN (07:05)
[2019-03-20] MEDS ORDERED: LABETALOL HCL IV 5 MG/ML 20ML IV PRN (07:05)
[2019-03-20] MEDS ORDERED: ONDANSETRON INJ 2 MG/ML 2 ML VIAL IV PRN ×2 (07:05→09:37)
--- NOTE | 2019-03-20 08:17 | Operative Report ---
PG Post Operative Report Pre & Post Diagnosis Operation Date: 03/20/19 07:00 Pre-Op Diagnosis: Left Hip Degenerative Joint Disease Post-Op Diagnosis: Left Hip Degenerative Joint Disease I identified the patient and participated in the time-out.: Yes Procedure Operation Date: 03/20/19 07:00 Actual Procedures p Left Anterior Total Hip Arthroplasty(Left) - Jayce Lorenz DO Surgeon Jayce Lorenz DO Senior [employer] Consultant Jayce Viveros PAC Estimated Blood Loss 250 Findings Consistent with Post-Op Diagnosis Specimens Left femoral head Complications none Disposition Disposition: Recovery Room Indications Staci is a pleasant 68-year-old female who presented my office with chronic increasing left hip pain. X-rays and clinical examination have been diagnostic for primary osteoarthritis of the left hip. After failing conservative treatment, she has elected to proceed with a left total hip arthroplasty. Description of Procedure Implants used Biomet Taperloc total hip arthroplasty system with a size 11 standard offset Taperloc stem, a 54 mm G7 cup with a 25mm screw, an E1 polyethylene liner, a 40 mm ceramic head with a -3 neck. Patient arrived at the hospital for the above procedure. They were seen in the preoperative holding area and the operative extremity was identified and signed. They were given a spinal anesthetic. They were given a preoperative antibiotic and TXA. They were taken back To the operating room and laid on the table in the supine position. The leg was brought out through a Puristst leg positioner. The hip was then prepped and draped in sterile fashion. A timeout was done and the patient and the operative extremity was properly identified. An anterior approach was used. Dissection was taken down through the fascia and the tensor muscle belly was retracted laterally and the rectus was retracted medially. The circumflex vessels were identified and ligated. The capsule was then incised and tagged for later repair. The femoral neck was then cut and the femoral head was removed. The acetabulum was exposed. Time was spent doing a complete circumferential labral release. Sequential reaming of the acetabulum up to a size 53 reamer was done. Final reamings were done under fluoroscopy to ensure appropriate version. A Biomet 54 mm G7 cup was then impacted into place. A single 25 mm screw was placed. The E1 polyethylene liner was then snapped into place. Surrounding soft tissues were then injected with 100 cc of an orthopedic pain control cocktail. The proximal femur was then exposed. Sequential broaching up to a size 11 broach was done. Off that broach a size 40 head with a -3 neck was trialed. The hip was reduced and fluoroscopic images showed anatomic alignment of the implants in acceptable length. There was a very small fracture of the tip of the greater trochanter. It was identified and it lined up nicely on reduction. I felt no additional fixation was necessary of this very small fragment. The broach was removed. The final size 11 standard offset Taperloc stem was then impacted into place. A ceramic 40 mm head with a -3 neck was then impacted into place in the hip was reduced. Final fluoroscopic images showed anatomic reduct ion of the hip. The capsule was then closed with #1 Vicryl suture. A dilute betadyne lavage was then done for 3 minutes. The joint was then irrigated with normal saline solution. The fascia was closed with #1 PDS suture. Skin was closed with 2-0 Vicryl, pinky, and a Kayce VAC dressing. The patient was then transferred to a hospital bed and taken to the post anesthesia care unit in stable condition. They tolerated the procedure well. I attest to the content of the Intraoperative Record and any orders documented therein. Any exceptions are noted below.
--- NOTE | 2019-03-20 08:28 | Fluoroscopy Report ---
FL hip LT 1V CLINICAL HISTORY: LEFT ANTERIOR TOTAL HIP ARTHOPLASTY COMPARISON STUDY: Pelvis radiograph December 02, 2018. FLUOROSCOPY TIME: 27 seconds. FLUOROSCOPIC IMAGES: 2 FINDINGS: These images demonstrate anatomic alignment of the total left hip arthroplasty. The hardwar e is intact. There is an acetabular screw. No fracture or unexpected radiopaque foreign bodies are id entified. IMPRESSION: Expected findings during total left hip arthroplasty. ACT 112: Negative or not required by law. Electronically signed by: Gus Blair M.D. 03/20/2019 8:27 AM
--- NOTE | 2019-03-20 09:09 | Anesthesiology Progress Note ---
Date of Service March 20, 2019 Anesthesia Post Procedure Vital Signs Vital Signs: Temp Pulse Pulse Resp BP Pulse Ox 03/20/19 09:00 36.8 C 72 14 120/74 96 03/20/19 08:50 80 18 118/71 100 03/20/19 08:44 36.4 C L 83 11 L 109/69 100 03/20/19 05:35 36.7 C 75 20 142/80 H 100 Transfer of Care Handoff Completed per policy Notes Mental Status: alert / awake / arousable Patient Amnestic to Procedure: Yes Nausea / Vomiting: adequately controlled Pain: adequately controlled Airway Patency, RR, SpO2: stable & adequate BP & HR: stable & adequate Hydration State: stable & adequate Neuraxial Anesthesia: was administered and sensory block is resolving Anesthetic Complications: no major complications apparent and Pt Satisfied with anesthetic care
--- NOTE | 2019-03-20 09:31 | XRay Report ---
XR hip 1V LT w pelvis CLINICAL HISTORY: Degenerative arthritis. Left hip arthroplasty. COMPARISON: 10/17/2018 DISCUSSION: There is no change in the appearance of a total right hip arthroplasty. Now evident is a total left hip arthroplasty. The acetabular and femoral components appear well seated. There is a fra cture through superior margin of the greater trochanter. There are overlying skin pinky. There is a ir within the soft tissues consistent with recent surgery. IMPRESSION: 1. Interval total left hip arthroplasty 2. Nondisplaced fracture through the superior margin of the greater trochanter. ACT 112: Negative or not required by law. Electronically signed by: Keegan Butcher M.D. 03/20/2019 9:30 AM
[2019-03-20] MEDS ORDERED: NALOXONE HCL 0.4 MG/1 ML VIAL/CARP IV PRN (09:37)
[2019-03-20] MEDS ORDERED: HYDROmorphone INJ 0.5 MG/0.5 ML SYR IV PRN (09:37)
[2019-03-20] MEDS ORDERED: MAGNESIUM HYDROXIDE SUSP 30 ML UDC PO PRN (09:37)
[2019-03-20] MEDS ORDERED: OXYCODONE HCL IR 5 MG TAB (IMMEDIATE RELEASE) PO PRN (09:37)
[2019-03-20] MEDS ORDERED: METOCLOPRAMIDE HCL INJ 5 MG/ML 2 ML VIAL IV PRN (09:37)
[2019-03-20] MEDS ORDERED: MAGNESIUM SULFATE 100 MG PO SCH (09:37)
[2019-03-20] MEDS ORDERED: NON-FORMULARY MEDICATION (Potassium 99 MG) PO SCH (09:37)
[2019-03-20] MEDS ORDERED: bisacodyL 10 MG SUPP PR PRN (09:37)
[2019-03-20] MEDS: ASPIRIN 81 MG ECTAB PO SCH ×2 (11:04→20:11)
[2019-03-20] MEDS: SODIUM CHLORIDE 0.9% 1000ML 1,000 ML IV SCH ×2 (11:05→20:59)
[2019-03-20] MEDS: DOCUSATE SODIUM 100 MG CAP PO SCH ×2 (11:05→20:09)
[2019-03-20] MEDS: MULTIVITAMIN TAB PO SCH (11:05)
[2019-03-20] MEDS: KETOROLAC TROMETHAMINE 15 MG/ML VIAL IV SCH ×2 (11:06→17:58)
[2019-03-20] MEDS: ACETAMINOPHEN 500 MG TAB PO SCH ×2 (14:14→21:00)
[2019-03-20] MEDS: CEFAZOLIN 2000MG 2,000 MG/15 ML SYR IV SCH (15:39)
[2019-03-20] MEDS: CEROVITE ADV FORMULA TAB PO SCH (20:10)
[2019-03-20] MEDS ORDERED: SENNA 8.6 MG TAB PO SCH (21:00)
[2019-03-21] MEDS: CEFAZOLIN 2000MG 2,000 MG/15 ML SYR IV SCH (00:47)
[2019-03-21] MEDS: KETOROLAC TROMETHAMINE 15 MG/ML VIAL IV SCH ×3 (00:47→11:15)
[2019-03-21] MEDS: ACETAMINOPHEN 500 MG TAB PO SCH (05:10)
[2019-03-21 05:21] LABS: Basophils # (auto) 0.01 K/uL (0-0.2); Basophils % (auto) 0.1 %; Eosinophils # (auto) 0.02 K/uL (0-0.5); Eosinophils % (auto) 0.2 %; Hematocrit (blood only) 30.1 % (37-47); Hemoglobin 10.2 g/dL (12.0-16.0); Immature Granulocytes # (auto) 0.02 K/uL (0.00-0.02); Immature Granulocytes % (auto) 0.2 %; Lymphocytes # (auto) 1.09 K/uL (1.2-3.4); Lymphocytes % (auto) 11.2 %; Mean Corpuscular Hemoglobin 29.7 pg (25-34); Mean Corpuscular Hgb Conc 33.9 g/dL (32-36); Mean Corpuscular Volume 87.5 fL (80-100); Mean Platelet Volume 9.2 fL (7.4-10.4); Monocytes # (auto) 0.91 K/uL (0.11-0.59); Monocytes % (auto) 9.4 %; Neutrophils # (auto) 7.66 K/uL (1.4-6.5); Neutrophils % (auto) 78.9 %; Platelet Count 244 K/uL (130-400); RDW Coefficient of Variation 14.5 % (11.5-14.5); RDW Standard Deviation 46.7 fL (36.4-46.3); Red Blood Count 3.44 M/uL (4.2-5.4); White Blood Count 9.71 K/uL (4.8-10.8)
[2019-03-21 05:48] LABS: BUN Creatinine Ratio 16.7 (10-20); Calcium 8.7 mg/dl (8.5-10.1); Est GFR (African American) 102.9; Est GFR (Non-African American) 88.8; Potassium 4.1 mmol/L (3.5-5.1)
--- NOTE | 2019-03-21 05:48 | Orthopedic Progress Note ---
Date of Service March 21, 2019 Assessment & Plan (1) History of total left hip arthroplasty: Overall she is doing very well. She is not having much pain in her left hip. She will be seen by physical therapy this morning for ambulation and range of motion exercises. She is hoping to be discharged home today. As long as the spinal wears off this morning she can be discharged home today. She already has oxycodone at home and will take aspirin for DVT prophylaxis. She will follow-up with orthopedics in 2 weeks. Present on Admission?: Yes Subjective Staci was seen and examined at bedside this morning. Overall she is doing very well. The spinal is still working and she still some numbness in her left leg. She is just gotten back some motion of her ankle. She has not been able to ambulate much. She has no complaints. Physical Exam Musculoskeletal: Physical examination of the left hip, she has active dorsiflexion and plantarflexion of the left ankle. She still some numbness along the left quad. Her Kayce VAC dressing is to suction. Her leg lengths are equal. Results & Data Vital Signs (Past 12 Hours) Vital Signs Temp Pulse Resp BP Pulse Ox 03/21/19 04:00 36.7 C 72 15 114/72 98 03/21/19 00:18 36.6 C 77 15 114/68 97 03/20/19 19:03 36.7 C 71 16 120/71 96 Laboratory Results H & H 02/25/19 03/21/19 Range/Units 10:57 04:49 Hgb 13.6 10.2 L (12.0-16.0) g/dL Hct 41.0 30.1 L (37-47) % Coagulation 02/25/19 Range/Units 10:57 INR 1.0 (0.9-1.1) Diagnostic Findings Postoperative x-rays of the left hip show the prosthesis to be in anatomic alignment without any evidence of dislocation or loosening. There is a very small fracture at the tip of the greater trochanter. PG Care Time/CCT Total # of Minutes Spent Total Time Spent with Patient: Total time spent is greater than 50% in coordination of care (as documented) at patient's floor/unit and/or counseling patient:
--- NOTE | 2019-03-21 05:51 | Discharge Summary ---
Date of Service March 21, 2019 Admission HPI Per Admitting Provider Staci is a pleasant 68-year-old female who underwent a right anterior total hip arthroplasty in September 2018. She did very well with that. Unfortunately she has been dealing with a lot of left hip and groin pain. X-rays and clinical examination have been diagnostic for primary osteoarthritis of the left hip. After failing conservative treatment, she has elected to proceed with a left anterior total hip arthroplasty. Principal Diagnosis Left total hip arthroplasty Discharge Data Allergies Allergy/AdvReac Type Severity Reaction Status Date / Time Sulfa (Sulfonamide Allergy Intermediate RASH Verified 03/20/19 05:19 Antibiotics) Consultations 03/21/19 08:00 Consult Case Management - Discharge Planning Routine Procedures Performed Operation Date: 03/20/19 07:00 Actual Procedures p Left Anterior Total Hip Arthroplasty(Left) - Jayce Lorenz DO Ordered Studies 03/20/19 07:00 FL fluoroscopy <1hr Routine FL hip LT 1V Routine Hospital Course (1) History of total left hip arthroplasty: On March 20, 2019 Staci arrived at [facility] and underwent a left anterior total hip arthroplasty without complication. She had a spinal anesthetic. Postoperatively she was started on aspirin for DVT prophylaxis and discharged to general orthopedic floors. Her hospital course was uneventful. On postop day #1 her H&H was stable and her pain was well controlled. She was able to participate well with physical therapy doing ambulation and range of motion exercises. She was then discharged home. She will follow-up with orthopedics in 2 weeks. Total Time Total Time Spent Total Time Spent (In Minutes): 20 Discharge Plan Discharge Items Reason For Visit: Left Hip Degenerative Joint Disease Discharge Diagnosis: Left total hip arthroplasty Activity: As commented below Non-emergency contact: Surgeon Call non-emergency contact if: your wound has increased redness and your wound has increased drainage Follow-up/Referrals: Wilton Bradshaw MD [Primary Care Provider] - Diet: Regular Addtl Attending Provider Instructions: Activity and Therapy Recommendations: * If you are using [facility] then therapy will be provided at your home until they feel you have accomplished all of your goals. * If you are using [facility] then Physical Therapy will be provided until they feel you are ready to start Outpatient Physical Therapy. * If you are not using home therapy then Outpatient Physical Therapy should start about 3-5 days from your day of surgery. Therapy will last about 6-10 weeks * You were shown a series of exercises in the hospital. Do these exercises three times each day including the exercises you were shown in physical therapy. * Get up and walk several times each day.~ For the first four weeks, try not to stand or walk for more than one hour at a time. If you do stand or walk for more than one hour, you will not hurt anything, but your leg will likely swell.~~ * As you feel comfortable, you may change from the walker or crutches to a cane and~then to independent walking. Medications: * Narcotic You will likely be sent home from the hospital with a prescription for the narcotic pain medication that worked best throughout your stay. * Aspirin Most patients will be required to take Aspirin 81mg twice a day for 6 weeks after surgery. This is obtained [id number] and a prescription is not necessary. * Other medications may be prescribed for specific circumstances. If you have any questions, please call the office at . * Resume previous home medications unless otherwise instructed TEDs/Elastic Stockings: The white elastic stockings help limit swelling and prevent blood clots from forming in your legs. The more you wear them, the more they work. Wear them for six weeks. Dressing Care: You will likely have a purple VAC dressing after surgery. This dressing will keep the incision dry and promote early healing. After about 7 days the batteries will wear out and the VAC will lose suction. Simply remove the dressing at that time and throw everything away, including the small suction machine. Then, you may leave the pinky open to air or cover them with a dry dressing so they do not rub on your pants. The pinky will be removed at your 2 week follow-up appointment. Showering: You may shower immediately with the purple VAC dressing. Let the shower spray hit your opposite side and slowly pat the plastic dry. Do not soak the dressing. After the dressing is removed you may shower normally with the pinky exposed. Let soapy water run over the pinky and pat them dry. Things To Watch For: * Drainage from the incision site that occurs more than one week after your surgery. * Increased redness at the incision site. * Fever above 102 degrees Fahrenheit. * Unusual chest pain or shortness of breath. * Call [facility] at with any of the above problems Follow-Up Visit: Follow-up with Dr. Lorenz 2-3 weeks after your day of surgery. An appointment was probably scheduled when you signed-up for surgery in the [facility]. If you have any questions call Office Instructions: More detailed instructions as well as Frequently Asked Questions were provided in a folder by our office when you signed-up for surgery. Please review these instructions when you get home. If you have any further questions or concerns, please feel free to call the office at [phone] Pending Studies at Discharge: No Stand-Alone Forms: My [facility] [employer], Smoking Cessation Medications and DC Order Prescriptions: New aspirin [Ecotrin Low Strength] 81 mg Tablet,Delayed Release (Dr/Ec) 81 mg PO BID 42 Days Qty: 0 RF: 0 Continued Fish Oil 900-1,400 mg capsule,delayed release(DR/EC) 1 cap PO QAM RF: 0 turmeric root extract 500 mg capsule 500 mg PO DAILY RF: 0 potassium 99 mg Tablet 99 mg PO QAM RF: 0 ascorbic acid (vitamin C) [Vitamin C] 500 mg Tablet 500 mg PO BID RF: 0 vitamin B complex Tablet 1 tab PO QAM RF: 0 cholecalciferol (vitamin D3) [Vitamin D3] 2,000 unit Capsule 2,000 unit PO BID RF: 0 Multivitamin Women 50 Plus 8 mg iron-400 mcg-300 mcg Tablet 1 tab PO BID RF: 0 Probiotic 3 billion cell Capsule 3,000 mmu cells PO QAM RF: 0 Ca-D3-mag [id number] [Calcium 600-D3 Plus (mag-zinc)] 600 mg calcium- 800 unit-50 mg Tablet 1 tab PO DAILY RF: 0 magnesium sulfate 100 mg Capsule 100 mg PO BID RF: 0 alendronate [Fosamax] 70 mg tablet 70 mg PO WK RF: 0 Admission Data Admit Date/Time: 03/20/19 08:47 Attending Provider: Jayce Lorenz Admit Provider: Jayce Lorenz Primary Care Provider: Wilton Bradshaw
[2019-03-21 07:01] VITALS: BP 122/75; TEMP 97.9; O2SAT 97
[2019-03-21] MEDS ORDERED: dexAMETHasone 4 MG TAB PO SCH (08:00)
[2019-03-21] MEDS: ASPIRIN 81 MG ECTAB PO SCH (08:57)
[2019-03-21] MEDS: DOCUSATE SODIUM 100 MG CAP PO SCH (08:57)
[2019-03-21] MEDS: CEROVITE ADV FORMULA TAB PO SCH (08:57)
[2019-03-21] MEDS: MULTIVITAMIN TAB PO SCH (08:57)
[2019-03-21 10:40] VITALS: PULSE 70
[2019-03-27] MEDS ORDERED: ALENDRONATE SODIUM 70 MG TAB PO SCH (06:00)
== END 2019-03-21 13:07 | disposition home or self-care (01) | DRG 470 ==
LOC: ASU 04:50 → 3E 08:47